=== PATIENT | female | born 1960 ===

== ENCOUNTER 2016-12-24 21:03 | Emergency (ER) | payer MEDICAID, OTHER ==
[~2016-12-24] VITALS: Ht 157.5 cm; Wt 77.3 kg
[2016-12-24 21:09] VITALS: BP 151/75; PULSE 79; RESP 22; O2SAT 97
--- NOTE | 2016-12-24 21:21 | ED.REPORT ---
HPI-Allergic Reaction Date of Service December 24, 2016 ED Provider: Max Lopez MD The patient is a 56 year old female who presents to the ED due to a rash for the past 4 days. She has had several doctor visits over the past few days to try to resolve the issue, with little to no relief of symptoms. Associated symptoms include lip swelling, swollen throat, and nausea. She denies dizziness , lightheadedness, and chest pain. She has a similar rxn when she is stung by bees, but she denies being stung by anything. Last night she was given a high dose of steroids which seemed to help a little bit. She is not on any blood pressure or heart medications. Nursing Notes Stated Complaint: POSSIBLE ALLERGIC REACTION Chief Complaint: Allergic Reaction Nursing Notes Reviewed: Yes (Bueeno not reconciled) Allergies: Coded Allergies: hydrocodone (Verified Adverse Reaction, Unknown, 03/19/14) oxycodone (Verified Adverse Reaction, Unknown, 03/19/14) Uncoded Allergies: BEE (Allergy, Unknown, 12/24/16) Scheduled Famotidine (Famotidine) 20 Mg Tablet 20 MG PO BID Scheduled PRN diphenhydrAMINE HCl (Benadryl) 25 Mg Capsule 25-50 MG PO Q4 PRN PRN For Itching General Time Seen by MD: 21:18 Chief Complaint Rash Hx Obtained From: Patient Arrived By: Walk-in Onset Occurred: 4 days ago Symptom Duration: Since onset Progression Since Onset: Constant, Gradually worsening Associated with: Reports: Lips swollen, Nausea, Rash/redness all over, Throat swollen, Tongue swollen Recent Healthcare: Recent doctor visit Similar Sx Previous: Yes Past Medical History Past Medical History PTSD, anxiety, heart murmur Past Surgical History Ear surgery, ankle surgery, gallstones, bilateral tubal ligation reversal Smoking History Former Smoker Social History Alcohol Use: Denies alcohol use Ambulatory Status Independent Review of Systems Review of Systems Note: lip swelling, swollen throat, and nausea Ears / Nose / Throat: Reports: Sore throat, Throat swelling, Tongue swelling Respiratory: Denies: Shortness of breath GI: Reports: Nausea Allergy / Immune: Reports: Allergic reaction Neurologic: Denies: Dizziness, Lightheaded Complete sys rev & neg: except as marked. Cardiovascular: Denies: Chest pain Physical Exam Initial Vital Signs Vital Signs (First) Date Time Temp Pulse Resp B/P Pulse Ox O2 Delivery O2 Flow Rate FiO2 12/24/16 21:09 37.1 79 22 151/75 97 Room Air Initial VS: Reviewed, Vital signs normal Head / Eyes: Atraumatic, Normocephalic Abdomen / GI: Soft, Non-tender Extremities: Vascular intact, Neuro intact General/Constitutional: Awake Behavior: Positive: Anxious Respiratory / Chest: No respiratory distress, No rales, No rhonchi, No wheezing , No retractions no bronchiospasm speaks w/out visible angiodema Cardiovascular: Heart rate NL, Regular rhythm Heart Rate / Rhythm: Negative: Tachycardia Color / Condition: Positive: Rash present Rash / Lesion Notes: generalized urticaria ENT: Mucous membranes moist Mouth: Negative: Lip swelling present no angiodema of lips and tongue Interpretation & Diagnostics Lab Results Interpretation Test 12/24/16 21:25 12/24/16 22:39 Hold Purple Top Tube Received (Received) Hold Blue Top Tube Received (Received) Hold Bumpass Top Tube Received (Received) Hold Davidson Top Tube Received (Received) Hold Urine Received (Received) Re-Eval/Medical Decision Med Decision/Clinical Course This is a 56-year-old female with 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 She reports using as a hospital given steroids and Benadryl. Did better initially, but is worse tonight. She is uncertain of any exposure- denies any new medications, any suspicious foods, or known insect bites or stings. Exam she has severe generalized urticaria, however I do not appreciate any evidence of actual airway compromise, there is no visible angioedema of lips or tongue, there is no bronchospasm, hypertension, nausea or diaphoresis. With the severity of the urticaria, with her description of lip and tongue symptoms, the fact she was seen yesterday-the patient was treated empirically for developing anaphylaxis and received a dose of IM epinephrine in the department. She received Benadryl IV, with Pepcid, additional steroids, Benadryl-and markedly improved with these interventions. The urticaria resolved. Her symptoms resolved. This point a definitive cause for the allergic reaction remains unclear. The patient is being discharged with a 2 doses of 10 mg of dexamethasone instead of the prednisone taper should be given earlier, she been discharged on diphenhydramine and Pepcid for several days, and I have also written epinephrine pen refill-the patient supposed to have some from her beesting allergy history. She is discharged much improved condition. Return precautions reviewed. Source of Hx: Old records Re-Evaluation/Progress #1: Time of Eval: 21:54 Patient Status: Condition improved, Moderate relief Re-Evaluation/Progress Note: Pt rechecked. Symptoms are much improved. Re-Evaluation/Progress #2: Time of Eval: 22:42 Patient Status: Condition improved, Complete relief Re-Evaluation/Progress Note: Pt rechecked. Hives are completely resolved. Pt feels much better. Differential Diagnosis: Positive: Allergic reaction, Anaphylaxis, Urticaria, Negative: Angioedema, Angioneurotic edema, Bronchospasm, Cellulitis, Drug reaction, Erythema multiforme, Hemolytic uremic syndrome, Idiopathic thromb purpura, MRSA, Seasonal allergy, Alvarez-Qamar syndrome Counseled Regarding: Diagnosis, Lab results, Need for follow-up, When/why to return to ED Discharge & Departure Primary Impression: Allergic reaction Encounter type: initial encounter Qualified Code: T78.40XA - Allergy, unspecified, initial encounter Disposition: Home Discharge Condition All VS Reviewed: Yes Condition: Stable Additional Instructions: 1. Unfortunately there is not simple blood tests that can tell us what caused the allergic reaction. 2. I want you to take the steroid dexamethasone 10 mg tomorrow (empty half of the syringe into some juice and drank) and remaining 10 mg on Wednesday. Take this steroid instead of the 1 you were given from [facility]. 3. I want to taking Benadryl 25-50 mg up to every 4 hours as needed for itching or rash over the next few days. NOTE: Causes drowsiness. 4. In addition I want she did take Pepcid (famotidine) 20 mg twice a day for the next 3 days. This helps make the other medicines work, as it is a type of antihistamine. 5. Return again if new or worsening symptoms Referrals: Iva Montalvo MD (PCP) Scribe Attestation Portion of this note were transcribed by Twila Kang. I, Dr.Matthew Lopez, personally performed the history, physical exam, and medical decision-making: I reviewed and confirmed the accuracy for the information in the transcribed note. Signed by: lee ann Herbert, 12/24/16 2200 copies to: Iva Montalvo MD, Matthew F MD December 24, 2016 21:21 Twila Kang December 24, 2016 21:28
[2016-12-24] MEDS ORDERED: Dexamethasone Inj 10 MG in 0.9% Sodium Chloride-Pha MIX 50 ML IV ONE (21:25)
[2016-12-24] MEDS ORDERED: Famotidine Inj 20 MG in IV Premix 1 EACH IV ONE (21:25)
[2016-12-24 22:36] VITALS: BP 124/102; PULSE 72; RESP 20; O2SAT 99
[2016-12-24] MEDS ORDERED: Dexamethasone 20 mg/2 mL Oral Solution PO ONE (22:45)
[2016-12-24] MEDS ORDERED: FAMO20TA4 PO (22:46)
[2016-12-24] MEDS ORDERED: DIPH25CA6 PO (22:46)
[2016-12-24] MEDS ORDERED: EPIN0.3P2 IJ (23:19)
[2016-12-24 23:20] VITALS: BP 133/70; PULSE 76; RESP 20; O2SAT 98
== END 2016-12-24 23:24 | disposition home or self-care (01) ==
LOC: SED 21:03
DX: R21 Rash and other nonspecific skin eruption (principal); T78.40XA Allergy, unspecified, initial encounter; X58.XXXA Exposure to other specified factors, initial encounter; Y93.89 Activity, other specified; Y99.8 Other external cause status; Y92.019 Unspecified place in single-family (private) house as the place of occurrence of the external cause; F41.9 Anxiety disorder, unspecified; F43.10 Post-traumatic stress disorder, unspecified; Z87.891 Personal history of nicotine dependence; Z88.5 Allergy status to narcotic agent
CPT/HCPCS: 96365; 96366; 96368; 96372; 96375; 99284; J0171; J1100; J1200; J3490